=== PATIENT | male | born 1960 | race Caucasian/White ===

== ENCOUNTER 2022-11-04 13:11 | Emergency (ER) | payer BC | END 2022-11-04 14:39 | disposition home or self-care (01) | LOC: BURERS 13:11 | DX: S63.602A Unspecified sprain of left thumb, initial encounter (principal); I10 Essential (primary) hypertension; E11.9 Type 2 diabetes mellitus without complications; E78.00 Pure hypercholesterolemia, unspecified; X58.XXXA Exposure to other specified factors, initial encounter; Z79.899 Other long term (current) drug therapy ==